=== PATIENT | female | born 1955 | race American Indian/Alaskan Native ===

== ENCOUNTER 2021-01-17 06:58 | Day surgery (SDC) | payer OTHER ==
[2021-01-17] MEDS ORDERED: ASPIRIN EC 325 MG TAB PO NR (07:19)
[2021-01-17 07:44] LABS: Basophils # (Auto) 0.1 K/mm3 (0.0-0.1); Basophils % (Auto) 0.9 % (0.0-1.8); Eosinophils # (Auto) 0.3 K/mm3 (0.0-0.4); Eosinophils % (Auto) 3.6 % (0.0-4.3); Hematocrit 38.9 % (30.3-42.9); Hemoglobin 12.3 gm/dl (10.1-14.3); Lymphocytes # (Auto) 1.9 K/mm3 (1.2-5.4); Lymphocytes % (Auto) 20.9 % (13.4-35.0); Mean Corpuscular HGB Conc 32 % (30-34); Mean Corpuscular Volume 90 fl (79-97); Monocytes # (Auto) 1.1 K/mm3 (0.0-0.8); Monocytes % (Auto) 12.8 % (0.0-7.3); Platelet Count 274 K/mm3 (140-440); Red Blood Count 4.33 M/mm3 (3.65-5.03); Red Cell Distribution Width 14.5 % (13.2-15.2)
[2021-01-17 07:55] LABS: INR 0.92 (0.87-1.13)
[2021-01-17] MEDS ORDERED: methylPREDNISolone Sod Succinate 125 MG/2 ML INJ IV NR (08:08)
[2021-01-17] MEDS ORDERED: FAMOTIDINE 20 MG/2 ML INJ IV NR (08:09)
[2021-01-17] MEDS ORDERED: diphenhydrAMINE 50 MG/ML VIAL IV NR (08:09)
[2021-01-17] MEDS ORDERED: VERAPAMIL 5 MG/2 ML INJ ONE (08:09)
[2021-01-17] MEDS: MIDAZOLAM 2 MG/2 ML INJ ONE ×2 (08:34→09:56)
[2021-01-17] MEDS: fentaNYL 100 MCG/2 ML INJ ONE ×2 (08:35→09:56)
[2021-01-17] MEDS: LIDOCAINE (2%) 20 MG/1 ML VIAL 20 ML MDV INFILTRATI ONE ×2 (08:35→09:58)
[2021-01-17] MEDS: HEPARIN/NS 5000 UNIT/500ML 1,000 ML IR ONE ×2 (08:36→10:01)
[2021-01-17] MEDS: HEPARIN 10,000 UNITS/10 ML VIAL ONE ×2 (08:36→10:01)
[2021-01-17] MEDS: SODIUM CHLORIDE 0.9% 500 ML 500 ML IV SCH ×2 (08:37→10:25)
[2021-01-17] MEDS: NITROGLYCERIN SYRINGE 3 ML ONE ×2 (08:37→10:01)
[2021-01-17 09:05] LABS: BUN/Creatinine Ratio 23; Blood Urea Nitrogen 14 mg/dL (7-17); Calcium 8.8 mg/dL (8.4-10.2); Hemolysis Index 2
[2021-01-17] MEDS ORDERED: INSULIN REGULAR, HUMAN 100 UNITS/1 ML ONE ×2 (09:16→10:42)
[2021-01-17] MEDS ORDERED: INSULIN REGULAR, HUMAN 100 UNITS/1 ML SUB-Q ONE ×2 (09:29→10:40)
[2021-01-17] MEDS ORDERED: INSULIN REGULAR, HUMAN 100 UNITS/1 ML SUB-Q NR (10:00)
--- NOTE | 2021-01-17 10:31 | Short Stay Summary ---
Short Stay Documentation Date of service: 01/17/21 - History H&P: obtained from office - Allergies and Medications Current Medications: Allergies shellfish derived Allergy (Verified 01/17/21 08:08) Anaphylaxis Home Medications Medication Instructions Recorded Confirmed Last Taken Type Aspirin [Aspirin BABY CHEW TAB] 81 mg PO DAILY 01/17/21 01/17/21 01/16/21 History 81 mg Famotidine [Acid-Pep] 20 mg PO BID 01/17/21 01/17/21 01/16/21 History 20 mg Fluticasone [Flonase] 1 spray INNOSTRIL PRN PRN 01/17/21 01/17/21 01/05/21 History 1 spray Furosemide [Lasix TAB] 20 mg PO DAILY 01/17/21 01/17/21 01/16/21 History 20 mg Insulin NPH Human Isophane 40 units SQ BID 01/17/21 01/17/21 01/16/21 History [HumuLIN N] 20 units Metformin HCl [Metformin HCl ER] 1,000 mg PO BID 01/17/21 01/17/21 01/16/21 History 1000 mg Spironolactone [Aldactone] 25 mg PO DAILY 01/17/21 01/17/21 01/16/21 History 25 mg carvediloL [Coreg] 25 mg PO BID 01/17/21 01/17/21 01/16/21 History 25 mg glipiZIDE [Glucotrol] 10 mg PO BID 01/17/21 01/17/21 01/16/21 History 10 mg lisinopriL [Lisinopril] 10 mg PO 01/17/21 01/16/21 History 10 mg Active Medications Diphenhydramine HCl (Diphenhydramine 50 Mg/Ml Vial) 25 mg IV ONCE NR Stop: 01/17/21 12:00 Last Admin: 01/17/21 09:18 Dose: 25 mg Documented by: Famotidine (Famotidine 20 Mg/2 Ml Inj) 20 mg IV ONCE NR Stop: 01/17/21 12:00 Last Admin: 01/17/21 09:14 Dose: 20 mg Documented by: Sodium Chloride (Nacl 0.9% 500 Ml) 500 mls @ 50 mls/hr IV DIRECT CATRINA Stop: 01/17/21 17:59 Last Admin: 01/17/21 08:37 Dose: 0 mls Documented by: Insulin Human Regular (Insulin Regular, Human 100 Units/1 Ml) 6 units SUB-Q ONCE NR Stop: 01/17/21 13:00 Methylprednisolone Sodium Succinate (Methylprednisolone Sod Succinate 125 Mg/2 Ml Inj) 125 mg IV ONCE NR Stop: 01/17/21 12:00 Last Admin: 01/17/21 09:17 Dose: 125 mg Documented by: - Brief post op/procedure progress note Date of procedure: 01/17/21 Pre-op diagnosis: cardiomyopathy Post-op diagnosis: same Anesthesia: local Estimated blood loss: minimal Pathology: none - Disposition Condition at discharge: Good Disposition: 01 HOME / SELF CARE / HOMELESS - Discharge Diagnoses (1) Cardiomyopathy Status: Chronic Qualifiers: Cardiomyopathy type: dilated Qualified Code(s): I42.0 - Dilated cardiomyopathy (2) Hypertension Status: Chronic Qualifiers: Hypertension type: primary hypertension Qualified Code(s): I10 - Essential (primary) hypertension (3) Hyperlipemia, mixed Status: Acute (4) Diabetes mellitus Status: Chronic Qualifiers: Diabetes mellitus type: type 1 Diabetes mellitus complication status: without complication Qualified Code(s): E10.9 - Type 1 diabetes mellitus without complications Short Stay Discharge Plan Activity: advance as tolerated Diet: low cholesterol, low salt, diabetic Wound: keep clean and dry Special Instructions: hold Metformin (for two days) Follow up with: PRIMARY CAREMD [Primary Care Provider] - 7 Days
[2021-01-17] MEDS ORDERED: HYDROcodone/ACETAMINOPHEN 5-325 MG TAB PO PRN (11:00)
[2021-01-17] MEDS ORDERED: traMADol 50 MG TAB PO PRN (11:10)
--- NOTE | 2021-01-17 11:37 | Cardiac Catherization Report ---
DATE OF SERVICE: 01/17/2021 ORDERING PHYSICIAN: Tiffanie Alan M.D. CLINICAL INFORMATION: A 65-year-old -[place] female with history of cardiomyopathy, EF of 25-30% on echocardiogram with hypertension, diabetes, cholesterol, is here for an ischemic evaluation. Procedure was done with moderate sedation, started at 9:56 and finished at 10:07, 11 minutes of moderate sedation. DESCRIPTION OF PROCEDURE: Procedure was done via the right radial artery, sterile technique and local anesthesia. A 6-Japanese radial sheath inserted. Left system engaged with JL3.5 catheter. Left main is large and patent, and bifurcates into large LAD, is patent, mild irregularities. Diagonal 1 is a medium caliber, was patent with mild irregularities. Circumflex, large caliber, was patent, goes into a medium caliber OM1 and OM2 that are patent. Mild luminal irregularities. RCA engaged with JR4 is a medium caliber vessel, moderate tortuosity, is patent. PDA, PLV are [id number] caliber, patent. LV gram done in [place] and WILLS shows moderate LV dysfunction, EF around 40%, LVEDP at 19 mmHg, LV is 135, aortic is 135/64. No gradient across the aortic valve on pullback. The 5-Japanese catheters all taken over guidewire. A 6-Japanese radial sheath was discontinued. Radial band applied. No hematoma. No bleeding. SUMMARY: Left main patent, LAD patent, circ patent. OM1, OM2, patent, RCA patent. Mild luminal irregularities with moderate LV dysfunction, EF approximately 35-40%. Suggest a MUGA scan for quantification of LV function. TID: [id number] RECEIPT: [id number] JESSICA/SONAL/LEONORA
[2021-01-17 13:36] VITALS: BP 135/62
--- NOTE | 2021-01-18 10:17 | Electrocardiograph Report ---
[facility] Test Date: 2021-01-17 Test Time: 07:34:17 Pat Name: CHARITY MARIE Department: Room: Gender: F Light Out Examiner: SUZAN : [id number] Requested By: VENANCIO SOTO Order Number: [id number] Reading MD: Venancio Soto Measurements Intervals [place] Rate: 98 P: 77 CA: 163 QRS: -41 QRSD: 120 T: 13 QT: 368 QTc: 470 Interpretive Statements Sinus rhythm Incomplete left bundle branch block Left ventricular hypertrophy poor r wave progression No previous ECG available for comparison Electronically Signed On 01-18-2021 10:17:02 EST by Venancio Soto
== END 2021-01-17 14:10 | disposition home or self-care (01) ==
LOC: CATHLABREC 06:58
PROVIDERS: ATTEND Internal Medicine
DX: R94.39 Abnormal result of other cardiovascular function study (principal); I42.0 Dilated cardiomyopathy; E11.9 Type 2 diabetes mellitus without complications; I11.0 Hypertensive heart disease with heart failure; I50.9 Heart failure, unspecified; K21.9 Gastro-esophageal reflux disease without esophagitis; G47.30 Sleep apnea, unspecified; M19.90 Unspecified osteoarthritis, unspecified site; E78.2 Mixed hyperlipidemia; Z79.82 Long term (current) use of aspirin; Z79.84 Long term (current) use of oral hypoglycemic drugs; Z79.899 Other long term (current) drug therapy; Z91.013 Allergy to seafood; Z87.891 Personal history of nicotine dependence; Z82.49 Family history of ischemic heart disease and other diseases of the circulatory system; Z83.3 Family history of diabetes mellitus
CPT/HCPCS: 36415; 80048; 82962; 85025; 85610; 85730; 93005; 93458; 96372; 96374; 96375; 99156; C1894; J1200; J1644; J1815; J2250; J2930; J3010; J3490; J7040; Q9967